=== PATIENT | female | born 1975 | race Caucasian/White ===

== ENCOUNTER 2019-10-05 00:09 | Inpatient (IN) | payer MEDICAID ==
[2019-10-05] VITALS (16 sets, daily range): BP systolic 109–128; BP diastolic 67–85
[~2019-10-05] VITALS: Ht 152.4 cm; Wt 38.2 kg
[2019-10-05] MEDS ORDERED: octreotide inj. 1,250 MCG in normal saline 250ml IV soln 250 ML IV SCH (00:15)
[2019-10-05] MEDS ORDERED: LORazepam 2 mg/ml vial IV ONE (00:20)
[2019-10-05 00:35] LABS: BASOPHILS # (AUTO) 0.1 X10'3 (0-0.2); EOSINOPHILS # (AUTO) 0.1 X10'3 (0-0.9); EOSINOPHILS % (AUTO) 0.6 % (0-6); HEMATOCRIT 24.9 % (35.0-45.0); HEMOGLOBIN 8.5 g/dl (12.0-16.0); LYMPHOCYTES # (AUTO) 2.5 X10'3 (1.1-4.8); LYMPHOCYTES % (AUTO) 25.5 % (21-51); MEAN CORPUSCULAR HEMOGLOBIN 32.9 PG (27.0-31.0); MEAN CORPUSCULAR VOLUME 96.9 FL (78-98); MEAN PLATELET VOLUME 8.3 FL (7.4-10.4); MONOCYTES # (AUTO) 0.8 X10'3 (0-0.9); MONOCYTES % (AUTO) 7.9 % (2-12); NEUTROPHILS # (AUTO) 6.5 X10'3 (1.8-7.7); PLATELET COUNT 80 X10'3 (140-440); RED BLOOD COUNT 2.57 X10'6 (4.20-5.60); RED CELL DISTRIBUTION WIDTH 20.1 % (11.5-14.5)
[2019-10-05] MEDS: pantoprazole 40MG/NS 100ML BAG 100 ML IV SCH ×5 (00:38→21:42)
[2019-10-05 00:52] LABS: ALANINE AMINOTRANSFERASE 35 U/L (12-78); ALBUMIN 2.4 G/DL (3.4-5.0); ALBUMIN/GLOBULIN RATIO 0.5 (1.1-1.5); ALKALINE PHOSPHATASE 152 IU/L (46-116); ANION GAP 9 (8-16); ASPARTATE AMINO TRANSFERASE 167 U/L (10-37); BILIRUBIN,TOTAL 1.8 MG/DL (0.1-1.0); BLOOD UREA NITROGEN 4 MG/DL (7-18); BUN/CREATININE RATIO 7.1 (6.6-38.0); CALCIUM 6.4 MG/DL (8.5-10.1); CHLORIDE 107 MMOL/L (99-107); CREATININE 0.56 MG/DL (0.40-0.90); GLUCOSE 81 MG/DL (70-104); PARTIAL THROMBOPLASTIN TIME 34 SECONDS (22-32); POTASSIUM 3.8 MMOL/L (3.5-5.1); SODIUM 138 MMOL/L (135-145); TOTAL CARBON DIOXIDE 22.4 MMOL/L (24-32); TOTAL PROTEIN 7.6 G/DL (6.4-8.2); eGFR > 90 ML/MIN
--- NOTE | 2019-10-05 02:43 | NUR ---
PT WANTED TO AMBULATE TO ER BATHROOM BUT UPON WALKING SHE WAS UNSTEADY. BEDSIDE COMMODE BROUGHT TO HER, PT UP WITH ASSISTANCE AND URINATED FOR SAMPLE. PT BACK IN BED, COMFORTABLY LYING. PT FRIENDS AT BEDSIDE
[2019-10-05 02:45] LABS: CLARITY,URINE CLEAR (Clear); COLOR,URINE YELLOW (Yellow); GLUCOSE, URINE NEGATIVE (Neg); KETONES,URINE NEGATIVE (Neg); LEUKOCYTE ESTERASE ,URINE NEGATIVE (Neg); NITRITES, URINE NEGATIVE (Neg); OCCULT BLOOD,URINE TRACE-INTACT (Neg); PROTEIN,URINE NEGATIVE (Neg); UROBILINOGEN,URINE 0.2 E.U/dL (0.2-1.0)
[2019-10-05 02:46] LABS: BASOPHILS # (AUTO) 0.1 X10'3 (0-0.2); BASOPHILS % (AUTO) 0.6 % (0-1); EOSINOPHILS # (AUTO) 0.1 X10'3 (0-0.9); EOSINOPHILS % (AUTO) 0.9 % (0-6); HEMATOCRIT 23.8 % (35.0-45.0); HEMOGLOBIN 7.9 g/dl (12.0-16.0); LYMPHOCYTES # (AUTO) 2.5 X10'3 (1.1-4.8); LYMPHOCYTES % (AUTO) 28.2 % (21-51); MEAN CORPUSCULAR HEMOGLOBIN 32.1 PG (27.0-31.0); MEAN CORPUSCULAR HGB CONC 33.1 g/dL (33.0-36.5); MEAN PLATELET VOLUME 8.3 FL (7.4-10.4); MONOCYTES # (AUTO) 0.7 X10'3 (0-0.9); MONOCYTES % (AUTO) 7.9 % (2-12); NEUTROPHILS # (AUTO) 5.5 X10'3 (1.8-7.7); NEUTROPHILS % (AUTO) 62.4 % (42-75); PLATELET COUNT 64 X10'3 (140-440); RED BLOOD COUNT 2.46 X10'6 (4.20-5.60); RED CELL DISTRIBUTION WIDTH 19.8 % (11.5-14.5); WHITE BLOOD COUNT 8.8 X10'3 (4.5-11.0)
[2019-10-05 02:50] LABS: UA COLLECTION TYPE CLN CATCH MIDSTREAM
[2019-10-05 02:51] LABS: BACTERIA,URINE 1+ /HPF (Neg); RBC,URINE 0-2 /HPF (0-2); SQUAMOUS EPITHELIAL CELL,UR FEW /LPF (FEW); WBC,URINE 0-4 /HPF (0-4)
--- NOTE | 2019-10-05 02:55 | NUR ---
TITA, SISTER, NEPHEW [phone]
--- NOTE | 2019-10-05 02:59 | NUR ---
ATTEMPTED TO TAKE OXYGEN OFF PATIENT - PT SATURATED DOWN TO 89%, 2 L O2 PLACED BACK ON, O2 SAT AT 98%
[2019-10-05] MEDS ORDERED: NO HOME MEDS (03:00)
[2019-10-05] MEDS ORDERED: magnesium 4gm in 100ml NS 100 ML IV PRN (03:20)
[2019-10-05] MEDS ORDERED: potassium CL 10mEq/100ml bag 100 ML IV PRN ×2 (03:20)
[2019-10-05] MEDS ORDERED: magnesium 2GM in 50ml NS 50 ML IV PRN (03:20)
[2019-10-05] MEDS ORDERED: thiamine 100mg/ml 2ml inj. IV ONE (03:25)
[2019-10-05 03:32] LABS: ANISOCYTOSIS 2+; HYPOCHROMASIA 1+; PLATELET ESTIMATE DECREASED
[2019-10-05 03:33] LABS: POLYCHROMASIA FEW
--- NOTE | 2019-10-05 04:00 | NUR ---
Received report from Martina MULLER from ED. Patient came to floor via gurney. Able to walk with assistance to bed. Bed locked & low. Call light placed within reach. IV fluids running per MD orders.
[2019-10-05] MEDS ORDERED: thiamine inj. 100 MG in normal saline 100ml IV soln 100 ML IV ONE (05:55)
[2019-10-05] MEDS: normal saline 1000ml 1,000 ML IV SCH ×3 (05:55→23:17)
--- NOTE | 2019-10-05 06:23 | NUR ---
Problems reprioritized. Patient report given, questions answered & plan of care reviewed with Niyah MULLER.
--- NOTE | 2019-10-05 06:45 | NUR ---
Received report from Yaquelin MULLER
[2019-10-05] MEDS: K and/or MAG REPLACEMENT MC SCH ×2 (08:00→20:00)
[2019-10-05] MEDS ORDERED: LORazepam 2 mg/ml vial IV PRN (09:20)
[2019-10-05] MEDS ORDERED: mag hydrox/Alum hydrox/simeth 30ml oral suspension PO PRN (09:20)
[2019-10-05] MEDS ORDERED: haloperidol lactate 5mg/ml inj IM PRN (09:20)
[2019-10-05] MEDS ORDERED: haloperidol 5mg tablet PO PRN (09:20)
[2019-10-05] MEDS ORDERED: FLU VACC QS2019-20 36MOS UP/PF 60 MCG/0.5 ML SYRINGE IMVAC ONE (10:00)
[2019-10-05] MEDS ORDERED: pneumococcal 23-VAL P-sac vacc 25 mcg/0.5ml vial IMVAC ONE (10:00)
[2019-10-05 10:22] LABS: HEMATOCRIT 25.8 % (35.0-45.0); HEMOGLOBIN 8.7 g/dl (12.0-16.0); MEAN CORPUSCULAR HEMOGLOBIN 31.7 PG (27.0-31.0); MEAN CORPUSCULAR HGB CONC 33.8 g/dL (33.0-36.5); MEAN CORPUSCULAR VOLUME 93.9 FL (78-98); MEAN PLATELET VOLUME 8.8 FL (7.4-10.4); RED BLOOD COUNT 2.74 X10'6 (4.20-5.60); RED CELL DISTRIBUTION WIDTH 19.9 % (11.5-14.5)
[2019-10-05] MEDS: thiamine 100mg tablet PO SCH (10:30)
[2019-10-05] MEDS: folic acid 1mg tablet PO SCH (10:30)
[2019-10-05 10:42] LABS: PLATELET COUNT 48 X10'3 (140-440)
[2019-10-05] MEDS ORDERED: MIDAZolam 5mg/5ml vial ONE (12:01)
[2019-10-05] MEDS ORDERED: LIDOcaine Viscous 15ml cup ONE (12:01)
[2019-10-05] MEDS ORDERED: fentaNYL/PF 50MCG/1 ML 2ML syringe ONE (12:01)
--- NOTE | 2019-10-05 13:00 | NUR ---
received report from Ya in gi lab about egd report
[2019-10-05] MEDS: carvedilol 6.25mg tablet PO SCH (13:11)
[2019-10-05] MEDS: traMADol 50MG tablet PO PRN ×2 (13:39→21:42)
[2019-10-05] MEDS: lactulose 20gm/30ml cup PO SCH ×2 (13:39→19:14)
[2019-10-05] MEDS: LORazepam 1 MG tablet PO PRN (19:14)
[2019-10-05] MEDS ORDERED: propranolol 10mg tablet PO SCH (20:00)
[2019-10-06] MEDS: lactulose 20gm/30ml cup PO SCH ×4 (02:00→20:59)
[2019-10-06] MEDS: pantoprazole 40MG/NS 100ML BAG 100 ML IV SCH ×3 (04:22→10:11)
[2019-10-06 06:38] LABS: BASOPHILS % (AUTO) 0.5 % (0-1); EOSINOPHILS # (AUTO) 0.1 X10'3 (0-0.9); EOSINOPHILS % (AUTO) 3.5 % (0-6); HEMATOCRIT 27.3 % (35.0-45.0); HEMOGLOBIN 9.3 g/dl (12.0-16.0); LYMPHOCYTES # (AUTO) 1.2 X10'3 (1.1-4.8); LYMPHOCYTES % (AUTO) 30.1 % (21-51); MEAN CORPUSCULAR HEMOGLOBIN 31.8 PG (27.0-31.0); MEAN CORPUSCULAR VOLUME 93.7 FL (78-98); MONOCYTES # (AUTO) 0.3 X10'3 (0-0.9); MONOCYTES % (AUTO) 8.1 % (2-12); NEUTROPHILS # (AUTO) 2.3 X10'3 (1.8-7.7); NEUTROPHILS % (AUTO) 57.8 % (42-75); RED BLOOD COUNT 2.91 X10'6 (4.20-5.60); RED CELL DISTRIBUTION WIDTH 20.1 % (11.5-14.5); WHITE BLOOD COUNT 3.9 X10'3 (4.5-11.0)
[2019-10-06 06:43] LABS: PLATELET COUNT 39 X10'3 (140-440)
[2019-10-06] MEDS: ondansetron/PF 4mg/2ml inj IV PRN (06:53)
[2019-10-06 06:57] VITALS: BP 137/83
[2019-10-06 06:57] LABS: ALANINE AMINOTRANSFERASE 27 U/L (12-78); ALBUMIN 2.1 G/DL (3.4-5.0); ALBUMIN/GLOBULIN RATIO 0.4 (1.1-1.5); ALKALINE PHOSPHATASE 141 IU/L (46-116); AMYLASE 61 U/L (25-115); ANION GAP 5 (8-16); ASPARTATE AMINO TRANSFERASE 120 U/L (10-37); BILIRUBIN,TOTAL 3.2 MG/DL (0.1-1.0); BLOOD UREA NITROGEN 2 MG/DL (7-18); BUN/CREATININE RATIO 3.6 (6.6-38.0); CALCIUM 6.7 MG/DL (8.5-10.1); CHLORIDE 103 MMOL/L (99-107); CREATININE 0.55 MG/DL (0.40-0.90); GLUCOSE 106 MG/DL (70-104); LIPASE 68 U/L (73-393); PHOSPHORUS 1.6 MG/DL (2.3-4.5); POTASSIUM 3.1 MMOL/L (3.5-5.1); SODIUM 134 MMOL/L (135-145); TOTAL CARBON DIOXIDE 25.7 MMOL/L (24-32); eGFR > 90 ML/MIN
[2019-10-06 07:24] LABS: MAGNESIUM 0.9 MG/DL (1.5-2.4)
[2019-10-06] MEDS: folic acid 1mg tablet PO SCH (07:47)
[2019-10-06] MEDS: carvedilol 6.25mg tablet PO SCH (07:47)
[2019-10-06 07:48] LABS: ANISOCYTOSIS 3+; LARGE PLATELETS FEW; PLATELET ESTIMATE DECREASED
[2019-10-06] MEDS: multivitamins, therapeutics tablet PO SCH (07:48)
[2019-10-06] MEDS: thiamine 100mg tablet PO SCH (07:48)
[2019-10-06] MEDS: magnesium Cl slow-release 64mg tablet PO SCH ×2 (07:48→20:55)
[2019-10-06 07:49] LABS: HYPOCHROMASIA 1+
[2019-10-06] MEDS: K and/or MAG REPLACEMENT MC SCH ×2 (08:13→20:00)
[2019-10-06] MEDS: normal saline 1000ml 1,000 ML IV SCH ×2 (09:23→21:05)
[2019-10-06 09:36] VITALS: BP 132/70
[2019-10-06] MEDS ORDERED: K and/or MAG REPLACEMENT MC SCH (11:00)
[2019-10-06] MEDS ORDERED: potassium Cl 20 mEq SR tablet PO PRN (11:00)
[2019-10-06] MEDS ORDERED: potassium CL 10mEq/100ml bag 100 ML IV PRN (11:00)
[2019-10-06] MEDS: potassium Cl 20 mEq SR tablet PO PRN ×2 (11:30→20:53)
[2019-10-06] MEDS ORDERED: magnesium 4gm in 100ml NS 100 ML IV ONE (13:05)
--- NOTE | 2019-10-06 17:07 | NUR ---
PATIENT IS VERY NAUSEATED. SHE STATED THAT SHE DOES NOT FEEL GOOD. AND DOES NOT WANT TO TAKE ANYTHING.
--- NOTE | 2019-10-06 17:13 | NUR ---
pATIENT WILL NOT TAKE HER POTASSIUM
--- NOTE | 2019-10-06 18:15 | NUR ---
RECEIVED REPORT FROM AMY MULLER AND ASSUMED PATIENT CARE
[2019-10-06 18:46] VITALS: BP 127/75
[2019-10-06] MEDS: LORazepam 1 MG tablet PO PRN (20:57)
[2019-10-06] MEDS: traMADol 50MG tablet PO PRN (21:03)
[2019-10-06 22:00] VITALS: BP 107/68
[2019-10-06] MEDS: diatr meglu/diatrizoate 30ml oral sol.-(3 dose) bottle PO SCH (22:59)
[2019-10-07] MEDS: rifaximin 550mg tablet PO SCH ×3 (01:02→19:53)
[2019-10-07] MEDS: lactulose 20gm/30ml cup PO SCH ×7 (01:03→23:11)
[2019-10-07] MEDS: normal saline 1000ml 1,000 ML IV SCH ×2 (05:17→09:58)
--- NOTE | 2019-10-07 06:09 | NUR ---
REPORT GIVEN TO LUIS MULLER
[2019-10-07] MEDS: traMADol 50MG tablet PO PRN ×2 (06:19→23:15)
[2019-10-07 06:40] LABS: BASOPHILS % (AUTO) 0.8 % (0-1); EOSINOPHILS # (AUTO) 0.3 X10'3 (0-0.9); EOSINOPHILS % (AUTO) 5.3 % (0-6); HEMATOCRIT 27.1 % (35.0-45.0); HEMOGLOBIN 9.2 g/dl (12.0-16.0); LYMPHOCYTES # (AUTO) 1.5 X10'3 (1.1-4.8); MEAN CORPUSCULAR HEMOGLOBIN 32.5 PG (27.0-31.0); MEAN CORPUSCULAR VOLUME 95.5 FL (78-98); MEAN PLATELET VOLUME 8.5 FL (7.4-10.4); MONOCYTES # (AUTO) 0.3 X10'3 (0-0.9); MONOCYTES % (AUTO) 7.3 % (2-12); NEUTROPHILS # (AUTO) 2.6 X10'3 (1.8-7.7); NEUTROPHILS % (AUTO) 54.6 % (42-75); RED BLOOD COUNT 2.84 X10'6 (4.20-5.60); RED CELL DISTRIBUTION WIDTH 20.4 % (11.5-14.5); WHITE BLOOD COUNT 4.7 X10'3 (4.5-11.0)
--- NOTE | 2019-10-07 06:43 | NUR ---
Patient in room [facility]TH[facility] 4020. I have received report from RENZO Ernandez and had the opportunity to ask questions and assume patient care. Patient asleep in bed and in no acute distress.
[2019-10-07 06:45] LABS: PLATELET COUNT 47 X10'3 (140-440)
--- NOTE | 2019-10-07 06:50 | NUR ---
Paged Dr. Harmon regarding critical PLT of 47 this AM. PAGER ID: [phone] MESSAGE: [phone]. Mary Anne Wise. Critical platelet of 47 this AM. Thank you. Sheyla MULLER x [phone]
[2019-10-07 06:59] LABS: ALANINE AMINOTRANSFERASE 26 U/L (12-78); ALBUMIN 2.1 G/DL (3.4-5.0); ALBUMIN/GLOBULIN RATIO 0.5 (1.1-1.5); ALKALINE PHOSPHATASE 133 IU/L (46-116); AMYLASE 54 U/L (25-115); ANION GAP 7 (8-16); ASPARTATE AMINO TRANSFERASE 91 U/L (10-37); BILIRUBIN,TOTAL 2.6 MG/DL (0.1-1.0); BLOOD UREA NITROGEN 2 MG/DL (7-18); BUN/CREATININE RATIO 3.3 (6.6-38.0); CALCIUM 6.9 MG/DL (8.5-10.1); CHLORIDE 107 MMOL/L (99-107); CREATININE 0.61 MG/DL (0.40-0.90); GLUCOSE 84 MG/DL (70-104); LIPASE 74 U/L (73-393); MAGNESIUM 1.4 MG/DL (1.5-2.4); PHOSPHORUS 1.3 MG/DL (2.3-4.5); POTASSIUM 3.4 MMOL/L (3.5-5.1); SODIUM 136 MMOL/L (135-145); TOTAL CARBON DIOXIDE 22.5 MMOL/L (24-32); TOTAL PROTEIN 6.7 G/DL (6.4-8.2); eGFR > 90 ML/MIN
[2019-10-07 07:00] VITALS: BP 122/62
[2019-10-07] MEDS: ondansetron/PF 4mg/2ml inj IV PRN (08:02)
[2019-10-07] MEDS: thiamine 100mg tablet PO SCH (08:02)
[2019-10-07] MEDS: pantoprazole 40mg Tablet.DR PO SCH ×3 (08:03→19:54)
[2019-10-07] MEDS: multivitamins, therapeutics tablet PO SCH (08:03)
[2019-10-07] MEDS: carvedilol 6.25mg tablet PO SCH (08:03)
[2019-10-07] MEDS: magnesium Cl slow-release 64mg tablet PO SCH ×2 (08:03→19:53)
[2019-10-07] MEDS: folic acid 1mg tablet PO SCH (08:03)
[2019-10-07] MEDS: potassium Cl 20 mEq SR tablet PO PRN ×3 (08:04→19:53)
[2019-10-07] MEDS: diatr meglu/diatrizoate 30ml oral sol.-(3 dose) bottle PO SCH ×2 (08:05→10:27)
[2019-10-07] MEDS: K and/or MAG REPLACEMENT MC SCH ×2 (08:17→19:42)
[2019-10-07 08:32] LABS: PLATELET ESTIMATE DECREASED
[2019-10-07 08:33] LABS: ANISOCYTOSIS 3+; LARGE PLATELETS FEW
--- NOTE | 2019-10-07 08:33 | NUR ---
Paged Dr. Monet regarding patient's hematemesis episode. PAGER ID: [phone] MESSAGE: [phone]. Mary Anne Wise. Patient had projectile hematemesis of 300mL. Thank you. Sheyla MULLER x [phone]
--- NOTE | 2019-10-07 09:59 | NUR ---
Administered normal saline, unable to scan normal saline bag.
[2019-10-07 10:00] VITALS: BP 116/80
[2019-10-07] MEDS ORDERED: iohexol 300mg/ml 100ml inj. ONE (10:13)
--- NOTE | 2019-10-07 10:29 | NUR ---
Gave last dose of gastroview before CT.
[2019-10-07] MEDS ORDERED: lactulose 20gm/30ml cup RC ONE (10:30)
--- NOTE | 2019-10-07 10:41 | NUR ---
Patient leaving the floor for CT.
--- NOTE | 2019-10-07 10:59 | NUR ---
Patient back from CT.
--- NOTE | 2019-10-07 11:10 | NUR ---
Ordered heart healthy diet per Dr. Monet.
--- NOTE | 2019-10-07 11:17 | NUR ---
Paged Dr. Monet regarding abnormal CT. PAGER ID: [phone] MESSAGE: [id number]. Mary Anne Wise. CT showed critical hematoma to right flank, that may have active bleed. H/H 9.2.1. Thank you. Sheyla MULLER x [phone]
[2019-10-07 11:32] LABS: H PYLORI ANTIBODY NEGATIVE (Neg)
[2019-10-07] MEDS: LORazepam 1 MG tablet PO PRN (16:14)
[2019-10-07 18:00] VITALS: BP 95/67
--- NOTE | 2019-10-07 18:14 | NUR ---
Problems reprioritized. Patient report given, questions answered & plan of care reviewed with RENZO Rosado. Patient stable at transfer of care.
--- NOTE | 2019-10-07 18:35 | NUR ---
END OF DAY NOTE Patient was very sleepy during the day today. Patient complained of "everything hurting". Lactulose administered per MD orders. Patient aware that if she does not take lactulose orally, that she will receive a dose rectally. Patient has been compliant with her lactulose today. Ativan given as well. Patient unsteady on feet, and bed alarm on. Patient stable at transfer of care.
--- NOTE | 2019-10-07 18:37 | NUR ---
Patient in room [facility]TH[facility] 4020. I have received report from RENZO SMITH and had the opportunity to ask questions and assume patient care.
[2019-10-07 22:00] VITALS: BP 99/71
[2019-10-08] VITALS (7 sets, daily range): BP systolic 102–123; BP diastolic 64–74
[2019-10-08] MEDS: lactulose 20gm/30ml cup PO SCH ×5 (04:39→19:27)
--- NOTE | 2019-10-08 06:20 | NUR ---
Problems reprioritized. Patient report given, questions answered & plan of care reviewed with RENZO BELLO.
[2019-10-08 07:05] LABS: BASOPHILS # (AUTO) 0.1 X10'3 (0-0.2); EOSINOPHILS # (AUTO) 0.2 X10'3 (0-0.9); EOSINOPHILS % (AUTO) 4.1 % (0-6); HEMATOCRIT 27.8 % (35.0-45.0); HEMOGLOBIN 9.4 g/dl (12.0-16.0); LYMPHOCYTES # (AUTO) 1.8 X10'3 (1.1-4.8); LYMPHOCYTES % (AUTO) 30.6 % (21-51); MEAN CORPUSCULAR HEMOGLOBIN 32.6 PG (27.0-31.0); MEAN CORPUSCULAR HGB CONC 33.8 g/dL (33.0-36.5); MEAN CORPUSCULAR VOLUME 96.4 FL (78-98); MONOCYTES # (AUTO) 0.4 X10'3 (0-0.9); MONOCYTES % (AUTO) 7.1 % (2-12); NEUTROPHILS # (AUTO) 3.4 X10'3 (1.8-7.7); NEUTROPHILS % (AUTO) 57.2 % (42-75); PLATELET COUNT 63 X10'3 (140-440); RED BLOOD COUNT 2.89 X10'6 (4.20-5.60); RED CELL DISTRIBUTION WIDTH 20.3 % (11.5-14.5)
[2019-10-08 07:14] LABS: ALANINE AMINOTRANSFERASE 26 U/L (12-78); ALBUMIN 2.2 G/DL (3.4-5.0); ALBUMIN/GLOBULIN RATIO 0.4 (1.1-1.5); ALKALINE PHOSPHATASE 135 IU/L (46-116); AMYLASE 65 U/L (25-115); ANION GAP 6 (8-16); ASPARTATE AMINO TRANSFERASE 83 U/L (10-37); BILIRUBIN,TOTAL 2.5 MG/DL (0.1-1.0); BLOOD UREA NITROGEN 3 MG/DL (7-18); BUN/CREATININE RATIO 5.4 (6.6-38.0); CALCIUM 7.7 MG/DL (8.5-10.1); CHLORIDE 109 MMOL/L (99-107); CREATININE 0.56 MG/DL (0.40-0.90); GLUCOSE 82 MG/DL (70-104); LIPASE 94 U/L (73-393); MAGNESIUM 1.3 MG/DL (1.5-2.4); PHOSPHORUS 1.7 MG/DL (2.3-4.5); POTASSIUM 4.3 MMOL/L (3.5-5.1); SODIUM 136 MMOL/L (135-145); TOTAL CARBON DIOXIDE 21.5 MMOL/L (24-32); TOTAL PROTEIN 7.1 G/DL (6.4-8.2); eGFR > 90 ML/MIN
[2019-10-08] MEDS: pantoprazole 40mg Tablet.DR PO SCH ×2 (07:24→17:31)
[2019-10-08] MEDS: folic acid 1mg tablet PO SCH (07:33)
[2019-10-08] MEDS: rifaximin 550mg tablet PO SCH ×2 (07:34→19:27)
[2019-10-08] MEDS: thiamine 100mg tablet PO SCH (07:34)
[2019-10-08] MEDS: magnesium Cl slow-release 64mg tablet PO SCH ×2 (07:34→19:27)
[2019-10-08] MEDS: multivitamins, therapeutics tablet PO SCH (07:34)
[2019-10-08] MEDS: K and/or MAG REPLACEMENT MC SCH ×2 (08:00→20:00)
[2019-10-08] MEDS ORDERED: heparin sodium, porcine/PF 100unit/ml 5ML syringe ONE (09:00)
[2019-10-08] MEDS: traMADol 50MG tablet PO PRN ×2 (09:38→17:31)
[2019-10-08] MEDS: normal saline 1000ml 1,000 ML IV SCH (16:50)
[2019-10-08] MEDS ORDERED: phytonadione inj. 10 MG in normal saline 100ml IV soln 99 ML IV ONE (16:55)
--- NOTE | 2019-10-08 18:00 | NUR ---
Patient in room [facility]TH[facility] 4020. I have received report from RENZO Oden and had the opportunity to ask questions and assume patient care. Addendum: 10/08/19 at 1848 by Marianna Modi RN Amended: Links added.
[2019-10-08] MEDS: lactobacillus rhamnosus 10,000 MMU CELLS/CAPSULE PO SCH (19:27)
[2019-10-09] VITALS (15 sets, daily range): BP systolic 90–154; BP diastolic 53–89
[2019-10-09] MEDS: traMADol 50MG tablet PO PRN ×2 (01:36→11:04)
[2019-10-09] MEDS: lactulose 20gm/30ml cup PO SCH ×4 (01:37→19:35)
[2019-10-09 07:16] LABS: EOSINOPHILS # (AUTO) 0.2 X10'3 (0-0.9); HEMOGLOBIN 7.9 g/dl (12.0-16.0); MONOCYTES # (AUTO) 0.7 X10'3 (0-0.9); NEUTROPHILS # (AUTO) 2.3 X10'3 (1.8-7.7)
[2019-10-09 07:19] LABS: BASOPHILS % (AUTO) 0.8 % (0-1); EOSINOPHILS % (AUTO) 4.7 % (0-6); HEMATOCRIT 23.3 % (35.0-45.0); LYMPHOCYTES % (AUTO) 38.4 % (21-51); MEAN CORPUSCULAR HEMOGLOBIN 33.1 PG (27.0-31.0); MEAN CORPUSCULAR VOLUME 97.5 FL (78-98); MONOCYTES % (AUTO) 12.5 % (2-12); NEUTROPHILS % (AUTO) 43.6 % (42-75); PLATELET COUNT 78 X10'3 (140-440); RED BLOOD COUNT 2.39 X10'6 (4.20-5.60); RED CELL DISTRIBUTION WIDTH 20.2 % (11.5-14.5); WHITE BLOOD COUNT 5.3 X10'3 (4.5-11.0)
[2019-10-09] MEDS: K and/or MAG REPLACEMENT MC SCH ×4 (08:00→20:00)
[2019-10-09] MEDS: thiamine 100mg tablet PO SCH (08:38)
[2019-10-09] MEDS: lactobacillus rhamnosus 10,000 MMU CELLS/CAPSULE PO SCH ×2 (08:38→19:35)
[2019-10-09] MEDS: magnesium Cl slow-release 64mg tablet PO SCH ×2 (08:38→20:00)
[2019-10-09] MEDS: multivitamins, therapeutics tablet PO SCH (08:38)
[2019-10-09] MEDS: pantoprazole 40mg Tablet.DR PO SCH ×2 (08:39→17:04)
[2019-10-09] MEDS: folic acid 1mg tablet PO SCH (08:39)
[2019-10-09] MEDS: carvedilol 6.25mg tablet PO SCH ×2 (08:41→19:35)
[2019-10-09 08:44] LABS: ALANINE AMINOTRANSFERASE 24 U/L (12-78); ALBUMIN 2.2 G/DL (3.4-5.0); ALBUMIN/GLOBULIN RATIO 0.5 (1.1-1.5); ALKALINE PHOSPHATASE 110 IU/L (46-116); AMYLASE 68 U/L (25-115); ANION GAP 8 (8-16); ASPARTATE AMINO TRANSFERASE 63 U/L (10-37); BILIRUBIN,TOTAL 2.1 MG/DL (0.1-1.0); BLOOD UREA NITROGEN 5 MG/DL (7-18); BUN/CREATININE RATIO 10.4 (6.6-38.0); CALCIUM 7.3 MG/DL (8.5-10.1); CHLORIDE 104 MMOL/L (99-107); CREATININE 0.48 MG/DL (0.40-0.90); GLUCOSE 84 MG/DL (70-104); LIPASE 150 U/L (73-393); MAGNESIUM 1.2 MG/DL (1.5-2.4); PHOSPHORUS 2.1 MG/DL (2.3-4.5); POTASSIUM 3.6 MMOL/L (3.5-5.1); SODIUM 134 MMOL/L (135-145); TOTAL CARBON DIOXIDE 21.9 MMOL/L (24-32); TOTAL PROTEIN 6.6 G/DL (6.4-8.2); eGFR > 90 ML/MIN
[2019-10-09] MEDS: rifaximin 550mg tablet PO SCH ×2 (08:46→19:35)
[2019-10-09] MEDS: normal saline 1000ml 1,000 ML IV SCH (08:51)
[2019-10-09] MEDS ORDERED: magnesium 4gm in 100ml NS 100 ML IV PRN (11:00)
[2019-10-09] MEDS ORDERED: potassium Cl 20 mEq SR tablet PO PRN ×2 (11:00)
[2019-10-09] MEDS ORDERED: magnesium 2GM in 50ml NS 50 ML IV PRN (11:00)
[2019-10-09] MEDS ORDERED: potassium CL 10mEq/100ml bag 100 ML IV PRN (11:00)
[2019-10-09] MEDS ORDERED: sodium phosphate inj. 15 MMOL in dextrose 5%-water 150 ML IV PRN (11:00)
[2019-10-09] MEDS ORDERED: phytonadione inj. 10 MG in normal saline 100ml IV soln 99 ML IV ONE (11:00)
[2019-10-09] MEDS ORDERED: sodium phosphate inj. 30 MMOL in dextrose 5%-water 250 ML IV PRN (11:00)
[2019-10-09] MEDS: Neutra Phos packet PO PRN ×2 (11:23→19:35)
[2019-10-09] MEDS: magnesium Cl slow-release 64mg tablet PO PRN ×2 (11:36→20:13)
[2019-10-09 11:48] LABS: HEMATOCRIT 23.2 % (35.0-45.0); HEMOGLOBIN 7.9 g/dl (12.0-16.0); MEAN CORPUSCULAR HEMOGLOBIN 33.1 PG (27.0-31.0); MEAN CORPUSCULAR HGB CONC 34.3 g/dL (33.0-36.5); MEAN CORPUSCULAR VOLUME 96.6 FL (78-98); MEAN PLATELET VOLUME 8.6 FL (7.4-10.4); PLATELET COUNT 76 X10'3 (140-440); RED CELL DISTRIBUTION WIDTH 20.4 % (11.5-14.5); WHITE BLOOD COUNT 5.3 X10'3 (4.5-11.0)
[2019-10-09] MEDS: ondansetron/PF 4mg/2ml inj IV PRN (11:50)
--- NOTE | 2019-10-09 12:41 | NUR ---
1225 please disregard the 800ml intake. Pt did not drink pitcher of water. It was poured out as she is NPO for procedure.
--- NOTE | 2019-10-09 14:27 | NUR ---
Initial: Pt admit w/ GIB hx advanced liver cirrhosis r/t etoh use and continues to drink per MD note. Pt EGD showed severe grade D reflux esophagitis, trace esophageal varices at gastroesophageal junction, and ulcerations at gastroesophageal junction and distal esophagus per MD. Pt receiving lactulose LBM 10/08. PO 25-50% heart healthy meals currently NPO for EGD per RN today. Pt seen by RD for verbal high protein diet ed. Pt BMI 16.4 via gurney scale w/ no scale wt hx; pt seen by RD and does not have visible signs of severe muscle/fat wasting but pt is agreeable to chocolate/strawberry TIDWM once diet advances. Receiving thiamin, folic, MVI for etoh and electrolyte replacements per protocol. Will continue to monitor for additional protein needs pending EGD results. Rec: 1. advance diet per MD to heart healthy 2. chocolate/strawberry Ensure Enlive TIDWM once diet advanced 3. MVI/thiamin/folic per MD given etoh hx 4. lactulose per MD 5. weekly wts Addendum: 10/09/19 at [address] Amended: Links added.
[2019-10-09] MEDS ORDERED: LIDOcaine Viscous 15ml cup ONE (14:43)
[2019-10-09] MEDS ORDERED: MIDAZolam 5mg/5ml vial ONE (14:43)
[2019-10-09] MEDS ORDERED: fentaNYL/PF 50MCG/1 ML 2ML syringe ONE (14:43)
--- NOTE | 2019-10-09 14:52 | NUR ---
Pt to GI Lab via wheelchair for EGD
--- NOTE | 2019-10-09 16:44 | NUR ---
pT BACK FROM GI LAB VIA WHEELCHAIR IN STABLE CONDITION. PT UP TO BEDSIDE COMMODE.
--- NOTE | 2019-10-09 18:00 | NUR ---
Patient in room [facility]TH[facility] 4020. I have received report from RENZO Argueta and had the opportunity to ask questions and assume patient care. Addendum: 10/09/19 at 1850 by Marianna Modi RN Amended: Links added.
--- NOTE | 2019-10-09 18:25 | NUR ---
Problems reprioritized. Patient report given, questions answered & plan of care reviewed with MICHELET MULLER.
[2019-10-10] MEDS: traMADol 50MG tablet PO PRN ×2 (01:55→11:16)
[2019-10-10] MEDS: lactulose 20gm/30ml cup PO SCH ×3 (01:55→15:19)
[2019-10-10] MEDS: normal saline 1000ml 1,000 ML IV SCH (05:11)
[2019-10-10] MEDS: ondansetron/PF 4mg/2ml inj IV PRN (05:11)
[2019-10-10 06:00] VITALS: BP 117/78
[2019-10-10 07:11] LABS: BASOPHILS % (AUTO) 0.5 % (0-1); EOSINOPHILS # (AUTO) 0.2 X10'3 (0-0.9); EOSINOPHILS % (AUTO) 3.5 % (0-6); HEMATOCRIT 24.5 % (35.0-45.0); HEMOGLOBIN 8.3 g/dl (12.0-16.0); LYMPHOCYTES # (AUTO) 1.6 X10'3 (1.1-4.8); LYMPHOCYTES % (AUTO) 32.4 % (21-51); MEAN CORPUSCULAR HGB CONC 33.8 g/dL (33.0-36.5); MEAN CORPUSCULAR VOLUME 97.6 FL (78-98); MEAN PLATELET VOLUME 8.8 FL (7.4-10.4); MONOCYTES # (AUTO) 0.4 X10'3 (0-0.9); MONOCYTES % (AUTO) 8.9 % (2-12); NEUTROPHILS # (AUTO) 2.6 X10'3 (1.8-7.7); NEUTROPHILS % (AUTO) 54.7 % (42-75); PLATELET COUNT 88 X10'3 (140-440); RED BLOOD COUNT 2.51 X10'6 (4.20-5.60); RED CELL DISTRIBUTION WIDTH 20.1 % (11.5-14.5); WHITE BLOOD COUNT 4.8 X10'3 (4.5-11.0)
[2019-10-10 07:40] LABS: ALANINE AMINOTRANSFERASE 30 U/L (12-78); ALBUMIN 2.4 G/DL (3.4-5.0); ALBUMIN/GLOBULIN RATIO 0.5 (1.1-1.5); ALKALINE PHOSPHATASE 115 IU/L (46-116); AMYLASE 95 U/L (25-115); ANION GAP 7 (8-16); ASPARTATE AMINO TRANSFERASE 68 U/L (10-37); BILIRUBIN,TOTAL 2.3 MG/DL (0.1-1.0); BLOOD UREA NITROGEN 5 MG/DL (7-18); BUN/CREATININE RATIO 8.8 (6.6-38.0); CALCIUM 8.1 MG/DL (8.5-10.1); CHLORIDE 105 MMOL/L (99-107); CREATININE 0.57 MG/DL (0.40-0.90); GLUCOSE 86 MG/DL (70-104); LIPASE 337 U/L (73-393); MAGNESIUM 1.1 MG/DL (1.5-2.4); PHOSPHORUS 3.1 MG/DL (2.3-4.5); POTASSIUM 3.7 MMOL/L (3.5-5.1); SODIUM 135 MMOL/L (135-145); TOTAL PROTEIN 7.2 G/DL (6.4-8.2); eGFR > 90 ML/MIN
[2019-10-10] MEDS: K and/or MAG REPLACEMENT MC SCH ×2 (08:00→08:23)
[2019-10-10] MEDS: magnesium Cl slow-release 64mg tablet PO SCH (08:00)
[2019-10-10] MEDS: pantoprazole 40mg Tablet.DR PO SCH (08:27)
[2019-10-10] MEDS: multivitamins, therapeutics tablet PO SCH (08:28)
[2019-10-10] MEDS: lactobacillus rhamnosus 10,000 MMU CELLS/CAPSULE PO SCH (08:28)
[2019-10-10] MEDS: folic acid 1mg tablet PO SCH (08:28)
[2019-10-10] MEDS: thiamine 100mg tablet PO SCH (08:28)
[2019-10-10] MEDS: rifaximin 550mg tablet PO SCH (08:28)
[2019-10-10] MEDS: magnesium Cl slow-release 64mg tablet PO PRN (08:29)
[2019-10-10] MEDS: carvedilol 6.25mg tablet PO SCH (08:29)
[2019-10-10 10:00] VITALS: BP 98/64
[2019-10-10] MEDS ORDERED: thiamine tablet PO (12:26)
[2019-10-10] MEDS ORDERED: PANT40TA4 PO (12:26)
[2019-10-10] MEDS ORDERED: MULT-1179 PO (12:26)
[2019-10-10] MEDS ORDERED: RIFA550T PO (12:26)
[2019-10-10] MEDS ORDERED: folic acid tablet PO (12:26)
[2019-10-10] MEDS ORDERED: LACT10SO32 PO (12:26)
[2019-10-10] MEDS ORDERED: MAGN500C16 PO (12:26)
[2019-10-10] MEDS ORDERED: CARV6.253 PO (12:26)
[2019-10-10 14:56] LABS: CREATINE KINASE 52 U/L (26-192)
== END 2019-10-10 15:30 | disposition home or self-care (01) | DRG 242 ==
LOC: ER 00:10 → ED HOLD 03:17 → ORTHO 4S 04:03
PROVIDERS: ADMIT Internal Medicine; ATTEND Internal Medicine
PROC: 0DB68ZX Excision of Stomach, Via Natural or Artificial Opening Endoscopic, Diagnostic (ICD-10-PCS; principal; 2019-10-05)
PROC: 3E0234Z Introduction of Serum, Toxoid and Vaccine into Muscle, Percutaneous Approach (ICD-10-PCS; 2019-10-05)
PROC: 3E02340 Introduction of Influenza Vaccine into Muscle, Percutaneous Approach (ICD-10-PCS; 2019-10-05)
PROC: 30233N1 Transfusion of Nonautologous Red Blood Cells into Peripheral Vein, Percutaneous Approach (ICD-10-PCS; 2019-10-05)
PROC: BW211ZZ Computerized Tomography (CT Scan) of Abdomen and Pelvis using Low Osmolar Contrast (ICD-10-PCS; 2019-10-07)
PROC: 30233K1 Transfusion of Nonautologous Frozen Plasma into Peripheral Vein, Percutaneous Approach (ICD-10-PCS; 2019-10-08)
PROC: C713YZZ Planar Nuclear Medicine Imaging of Blood using Other Radionuclide (ICD-10-PCS; 2019-10-08)
PROC: 0DJ08ZZ Inspection of Upper Intestinal Tract, Via Natural or Artificial Opening Endoscopic (ICD-10-PCS; 2019-10-09)
DX: K22.6 Gastro-esophageal laceration-hemorrhage syndrome (principal); I85.11 Secondary esophageal varices with bleeding; D61.818 Other pancytopenia; K22.11 Ulcer of esophagus with bleeding; D68.9 Coagulation defect, unspecified; E83.42 Hypomagnesemia; K76.6 Portal hypertension; E87.6 Hypokalemia; F10.20 Alcohol dependence, uncomplicated; F17.210 Nicotine dependence, cigarettes, uncomplicated; K25.4 Chronic or unspecified gastric ulcer with hemorrhage; X58.XXXA Exposure to other specified factors, initial encounter; K21.0 Gastro-esophageal reflux disease with esophagitis; K29.70 Gastritis, unspecified, without bleeding; F12.90 Cannabis use, unspecified, uncomplicated; K29.80 Duodenitis without bleeding; K31.89 Other diseases of stomach and duodenum; F32.9 Major depressive disorder, single episode, unspecified; K70.30 Alcoholic cirrhosis of liver without ascites; K72.90 Hepatic failure, unspecified without coma; S70.01XA Contusion of right hip, initial encounter; Z91.19 Patient's noncompliance with other medical treatment and regimen; Z23 Encounter for immunization; Y93.89 Activity, other specified; Y92.89 Other specified places as the place of occurrence of the external cause; Y99.8 Other external cause status; Z90.49 Acquired absence of other specified parts of digestive tract; Z98.51 Tubal ligation status
CPT/HCPCS: 36415; 36430; 43235; 43239; 70450; 73502; 74177; 78278; 80053; 81001; 82140; 82150; 82550; 83690; 83735; 84100; 85025; 85027; 85610; 85730; 86677; 86885; 86900; 86901; 86920; 87081; 93005; 96374; 97116; 97161; 97530; 97535; 99152; 99291; A4620; A9560; C9113; G0378; J1642; J2060; J2250; J2354; J2405; J3010; J3411; J3430; J3475; J7030; J7040; J7050; P9016; P9059; Q2037; Q9963; Q9967